=== PATIENT | female | born 1985 | race Two or more races ===

== ENCOUNTER 2019-06-10 20:25 | Emergency (ER) | payer MEDICAID ==
[~2019-06-10] VITALS: Ht 160 cm; Wt 90.9 kg
[2019-06-10 20:46] VITALS: BP 189/102
[2019-06-10] MEDS ORDERED: HYDROcodone/acetaminophen 5mg/325mg tablet PO ONE (21:30)
[2019-06-10] MEDS ORDERED: HYDR-3965 PO (21:31)
[2019-06-10] MEDS ORDERED: PENI500T2 PO (21:55)
== END 2019-06-10 22:06 | disposition home or self-care (01) ==
LOC: ER 20:26
DX: K02.9 Dental caries, unspecified (principal); Z72.89 Other problems related to lifestyle; Z79.899 Other long term (current) drug therapy
CPT/HCPCS: 99283

== ENCOUNTER 2020-08-07 19:51 | Emergency (ER) | payer MEDICAID ==
[~2020-08-07] VITALS: Ht 160 cm; Wt 89.1 kg
[2020-08-07 20:02] VITALS: BP 141/84
[2020-08-07] MEDS ORDERED: TETanus/Pertussis (Acell)/Diphther VAC/PF (Tdap-Adult) 0.5ml syringe IMVAC ONE (22:25)
[2020-08-07] MEDS ORDERED: bacitracin 15gm ointment TP ONE (22:25)
[2020-08-07] MEDS ORDERED: CEPH250T PO (23:30)
== END 2020-08-07 23:38 | disposition home or self-care (01) ==
LOC: ER 19:51
DX: S61.216A Laceration without foreign body of right little finger without damage to nail, initial encounter (principal); Z72.89 Other problems related to lifestyle; Z79.899 Other long term (current) drug therapy; W26.0XXA Contact with knife, initial encounter; Y93.89 Activity, other specified; Y92.89 Other specified places as the place of occurrence of the external cause; Y99.8 Other external cause status
CPT/HCPCS: 12001; 90471; 90715; 99283

== ENCOUNTER 2021-03-24 06:28 | Emergency (ER) | payer MEDICAID ==
[~2021-03-24] VITALS: Ht 160 cm; Wt 85.0 kg
[2021-03-24 06:29] VITALS: BP 142/110
[2021-03-24] MEDS ORDERED: CLIN150C8 PO (06:58)
[2021-03-24] MEDS ORDERED: HYDROcodone/acetaminophen 5mg/325mg tablet PO ONE (07:00)
[2021-03-24] MEDS ORDERED: clindamycin 150mg capsule PO ONE (07:00)
== END 2021-03-24 07:19 | disposition home or self-care (01) ==
LOC: ER 06:28
DX: K05.10 Chronic gingivitis, plaque induced (principal)
CPT/HCPCS: 99283

== ENCOUNTER 2021-05-18 08:25 | Emergency (ER) | payer MEDICAID ==
[~2021-05-18] VITALS: Ht 160 cm; Wt 85.0 kg
[~2021-05-18 08:25] MED LIST: CLIN150C8 PO
[2021-05-18 08:27] VITALS: BP 158/88
--- NOTE | 2021-05-18 08:45 | NUR ---
Pt c/o dental pain in L lower jaw. +edema noted in cheek.
[2021-05-18] MEDS ORDERED: PENI500T2 PO (08:54)
--- NOTE | 2021-05-18 09:02 | NUR ---
Pt given and understands d/c instructions. Ambulatory with a steady gait.
== END 2021-05-18 09:02 | disposition home or self-care (01) ==
LOC: ER 08:26
DX: K08.89 Other specified disorders of teeth and supporting structures (principal); Z72.89 Other problems related to lifestyle; Z79.2 Long term (current) use of antibiotics
CPT/HCPCS: 99283

== ENCOUNTER 2021-09-22 19:12 | Emergency (ER) | payer MEDICAID ==
[~2021-09-22] VITALS: Ht 160 cm; Wt 82.7 kg
[2021-09-22 19:34] VITALS: BP 184/104
[2021-09-22 19:56] LABS: BASOPHILS % (AUTO) 0.3 % (0-1); EOSINOPHILS # (AUTO) 0.2 X10'3 (0-0.9); EOSINOPHILS % (AUTO) 1.4 % (0-6); HEMATOCRIT 39.3 % (35.0-45.0); HEMOGLOBIN 13.6 g/dl (12.0-16.0); LYMPHOCYTES # (AUTO) 3.6 X10'3 (1.1-4.8); LYMPHOCYTES % (AUTO) 31.6 % (21-51); MEAN CORPUSCULAR HEMOGLOBIN 31.1 PG (27.0-31.0); MEAN CORPUSCULAR HGB CONC 34.5 g/dL (33.0-36.5); MEAN CORPUSCULAR VOLUME 90.1 FL (78-98); MEAN PLATELET VOLUME 8.3 FL (7.4-10.4); MONOCYTES # (AUTO) 0.9 X10'3 (0-0.9); MONOCYTES % (AUTO) 7.8 % (2-12); NEUTROPHILS # (AUTO) 6.7 X10'3 (1.8-7.7); NEUTROPHILS % (AUTO) 58.9 % (42-75); PLATELET COUNT 304 X10'3 (140-440); RED BLOOD COUNT 4.36 X10'6 (4.20-5.60); RED CELL DISTRIBUTION WIDTH 13.6 % (11.5-14.5); WHITE BLOOD COUNT 11.4 X10'3 (4.5-11.0)
[2021-09-22 20:32] LABS: ALANINE AMINOTRANSFERASE 29 U/L (12-78); ALBUMIN 3.6 G/DL (3.4-5.0); ALKALINE PHOSPHATASE 57 IU/L (46-116); ANION GAP 7 (8-16); ASPARTATE AMINO TRANSFERASE 31 U/L (10-37); BILIRUBIN,TOTAL 0.4 MG/DL (0.1-1.0); BLOOD UREA NITROGEN 8 MG/DL (7-18); BUN/CREATININE RATIO 12.7 (6.6-38.0); CALCIUM 8.9 MG/DL (8.5-10.1); CHLORIDE 104 MMOL/L (99-107); CREATININE 0.63 MG/DL (0.40-0.90); GLUCOSE 156 MG/DL (70-104); POTASSIUM 3.7 MMOL/L (3.5-5.1); SODIUM 140 MMOL/L (135-145); TOTAL CARBON DIOXIDE 29.5 MMOL/L (24-32); TOTAL PROTEIN 7.2 G/DL (6.4-8.2); eGFR > 90 ML/MIN
== END 2021-09-22 22:56 | disposition left against medical advice (07) ==
LOC: ER 19:13
DX: R05.9 Cough, unspecified (principal); R07.89 Other chest pain; Z53.21 Procedure and treatment not carried out due to patient leaving prior to being seen by health care provider
CPT/HCPCS: 36415; 71045; 80053; 83880; 84484; 85025; 93005

== ENCOUNTER 2022-11-14 05:42 | Day surgery (SDC) | payer MEDICAID ==
[2022-11-07 11:26] LABS: BASOPHILS % (AUTO) 0.5 % (0-1); EOSINOPHILS # (AUTO) 0.1 X10'3 (0-0.9); EOSINOPHILS % (AUTO) 1.4 % (0-6); LYMPHOCYTES # (AUTO) 3.7 X10'3 (1.1-4.8); LYMPHOCYTES % (AUTO) 40.3 % (21-51); MEAN CORPUSCULAR HEMOGLOBIN 31.8 PG (27.0-31.0); MEAN CORPUSCULAR HGB CONC 34.7 g/dL (33.0-36.5); MEAN CORPUSCULAR VOLUME 91.7 FL (78-98); MEAN PLATELET VOLUME 8.3 FL (7.4-10.4); MONOCYTES # (AUTO) 0.4 X10'3 (0-0.9); MONOCYTES % (AUTO) 4.8 % (2-12); NEUTROPHILS # (AUTO) 4.8 X10'3 (1.8-7.7); PRE OP HEMATOCRIT 43.5 % (35.0-45.0); PRE OP HEMOGLOBIN 15.1 g/dL (12.0-16.0); PRE OP PLATELET COUNT 326 X10'3 (140-440); PRE OP WHITE BLOOD COUNT 9.1 10'3 (4.8-10.8); RED BLOOD COUNT 4.74 X10'6 (4.20-5.60); RED CELL DISTRIBUTION WIDTH 13.7 % (11.5-14.5)
[2022-11-07 11:40] LABS: ALBUMIN 3.8 G/DL (3.4-5.0); ALKALINE PHOSPHATASE 50 IU/L (46-116); BLOOD UREA NITROGEN 11 MG/DL (7-18); BUN/CREATININE RATIO 17.7 (10.0-20.0); CALCIUM 9.3 MG/DL (8.5-10.1); CHLORIDE 103 MMOL/L (99-107); CREATININE 0.62 MG/DL (0.40-0.90); PRE OP ALT 23 U/L (30-65); PRE OP ANION GAP 12 (8-16); PRE OP AST 16 U/L (10-37); PRE OP BILIRUB, TOTAL 0.4 MG/DL (0.0-1.0); PRE OP GLUCOSE 111 MG/DL (70-104); PRE OP POTASSIUM 3.8 MMOL/L (3.4-5.1); PRE OP SODIUM 139 MMOL/L (135-145); TOTAL CARBON DIOXIDE 24.5 MMOL/L (24-32); TOTAL PROTEIN 7.5 G/DL (6.4-8.2); eGFR > 90 ML/MIN
[~2022-11-14] VITALS: Ht 160 cm; Wt 81.6 kg
[~2022-11-14 05:42] MED LIST changes: -CLIN150C8 PO; +DULA3PEN SQ; +METF-900 PO; +cefazolin 2gm/D5W 100mL 100 ML IV ONE; +famotidine 20mg tablet PO ONE; +ringers solution, lacted 1,000 ML IV SCH
[2022-11-14 06:18] VITALS: RESP 16; O2SAT 98
[2022-11-14 06:31] VITALS: BP 113/73; PULSE 70; RESP 16; TEMP 97.7; O2SAT 97
[2022-11-14] MEDS ORDERED: BUPIVAcaine/PF 2.5 mg/ml (0.25%) 30ml vial ONE (06:37)
[2022-11-14] MEDS ORDERED: LIDOcaine 0.5% (5mg/ml) 50ml vial ONE (07:18)
[2022-11-14] MEDS ORDERED: fentaNYL/PF 50MCG/1 ML 2ML syringe ONE (07:23)
[2022-11-14] MEDS ORDERED: midazolam 1 mg/ML 2ml injection ONE (07:24)
[2022-11-14 07:35] LABS: HCG SERUM QL NEGATIVE
[2022-11-14 07:52] VITALS: BP 104/70; PULSE 67; RESP 14; O2SAT 97
--- NOTE | 2022-11-14 07:52 | NUR ---
Received from OR via mariel, accompanied by Anesthesiologist and report given by Gerry Anesthesifilemon. PATIENT WAKING UP, NO S/S OF PAIN, V/S WNL, SCD ON, PIV 20G TO Left hand, RIGHT WRIST DRESSING CDI. ICE AND ELEVATED RUE. Addendum: 11/14/22 at 0811 by Cameron Harper RN Amended: Links added. Addendum: 11/14/22 at 0927 by Cameron Harper RN REPORT GIVEN BY DR. PICKARD
[2022-11-14 08:00] VITALS: BP 107/79; PULSE 71; RESP 13; O2SAT 99
[2022-11-14] MEDS ORDERED: propofol inj 20 ML IV ONE (08:05)
[2022-11-14 08:10] VITALS: BP 106/89; PULSE 72; RESP 14; O2SAT 99
[2022-11-14 08:20] VITALS: BP 119/77; PULSE 66; RESP 12; O2SAT 99
--- NOTE | 2022-11-14 08:27 | NUR ---
ALL DISCHARGE CRITERIA HAS BEEN MET. VSS, PAIN AT A TOLERABLE LEVEL, ABLE TO SAFELY AMBULATE AND TRANSFER SELF. IV TAKEN OUT WITHOUT ANY COMPLICATIONS. ALL DISCHARGE INSTRUCTIONS COVERED WITH PATIENT AND ALL QUESTIONS ANSWERED. PATIENT TAKEN OUT VIA WHEELCHAIR WITH ALL BELONGINGS TO PERSONAL VEHICLE WHERE FAMILY DROVE PATIENT HOME. Addendum: 11/14/22 at 0835 by Cameron Harper RN Amended: Links added.
== END 2022-11-14 08:27 | disposition home or self-care (01) ==
LOC: PAS 05:42
PROVIDERS: ATTEND Orthopaedic Surgery Hand Surgery
DX: G56.01 Carpal tunnel syndrome, right upper limb (principal); E78.5 Hyperlipidemia, unspecified; E11.9 Type 2 diabetes mellitus without complications; Z72.89 Other problems related to lifestyle; F12.90 Cannabis use, unspecified, uncomplicated; Z98.890 Other specified postprocedural states; Z79.899 Other long term (current) drug therapy; Z79.84 Long term (current) use of oral hypoglycemic drugs; Z87.891 Personal history of nicotine dependence
CPT/HCPCS: 29848; 36415; 80053; 82948; 84703; 85025; J0690; J2250; J2704; J3010; J3490; J7030; J7120; Z7506; Z7512; A4215; A7000